=== PATIENT | male | born 1940 | race Caucasian/White ===

== ENCOUNTER → 2017-10-04 | Outpatient (CLI) | payer MEDICAID | END | disposition home or self-care (01) | LOC: GT 05:36 | PROVIDERS: ATTEND Internal Medicine | DX: E78.5 Hyperlipidemia, unspecified (principal) | CPT/HCPCS: 36415; 80061; P9603 ==

== ENCOUNTER 2017-11-12 01:29 | Emergency (ER) | payer MEDICAID ==
--- NOTE | 2017-11-12 02:14 | RAD ---
EXAM: Two view(s) of the right hip. INDICATION: Pain. COMPARISON: None. FINDINGS: No acute fracture or dislocation. No large soft tissue swelling. IMPRESSION: 1. No acute fracture. Electronically signed by: Jorge Luis Cuevas MD 11/12/2017 2:13 AM [facility] Workstation: [id number]
--- NOTE | 2017-11-12 02:17 | ED.PDOC ---
History of Present Illness - General Time Seen by Provider: 11/12/17 01:37 Source: patient Exam Limitations: clinical condition - History of Present Illness Initial Comments: the patient is a 77-year-old male presenting to the emergency room secondary to right hip pain. The patient apparently fell at his long-term care facility. EMS found him on the floor. He is having a little bit of right hip pain when he moves the right hip. There is no obvious deformity or bruising. No laceration. He is also having some mild pain in the right wrist with movement only. The patient has fairly significant dementia and is really unable to tell us any significant medical history or about the fall itself. No evidence of any other injury. The patient is fairly difficult to examine and get information from because he is fairly paranoid. Timing/Duration: unsure Severity: mild Improving Factors: nothing Worsening Factors: movement Associated Symptoms: denies symptoms Review of Systems - Review of Systems Review of Systems: 11/12/17 02:16 validity of review of systems is certainly limited by dementia Constitutional: States: no symptoms reported EENTM: States: no symptoms reported Respiratory: States: no symptoms reported Cardiology: States: no symptoms reported Gastrointestinal/Abdominal: States: no symptoms reported Genitourinary: States: no symptoms reported Musculoskeletal: States: see HPI Skin: States: no symptoms reported Neurological: States: no symptoms reported Endocrine: States: no symptoms reported Hematologic/Lymphatic: States: no symptoms reported All other Systems: No Change from Baseline Physical Exam - Physical Exam General Appearance: Alert, Anxious, No apparent distress Eye Exam: bilateral normal Ears, Nose, Throat: hearing grossly normal, normal ENT inspection, normal pharynx Neck: full range of motion, supple Respiratory: lungs clear, normal breath sounds, no respiratory distress, no accessory muscle use Cardiovascular/Chest: normal peripheral pulses, no edema, other - regular rate Peripheral Pulses: radial,right: 2+, radial,left: 2+, dorsalis pedis,right: 2+, dorsalis pedis,left: 2+ Gastrointestinal/Abdominal: non tender, soft Rectal Exam: deferred Back Exam: no CVA tenderness, no vertebral tenderness Extremity: normal range of motion, no pedal edema, no calf tenderness, normal capillary refill, other - the patient does have some discomfort with both active and passive range of motion about the right hip. No deformity. He appears to be neurovascularly at his baseline. 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 Skin Exam: normal color Progress - Progress Progress: 11/12/17 02:18 the patient's a 77-year-old male presenting to the emergency room after a fall at his living quarters, due to some right hip and right wrist pain. X-ray shows no evidence of any fracture or dislocation. He certainly seems to have strained his right hip. He needs to ambulate carefully. He needs to follow up with his primary care doctor. ER warnings were given for any significant worsening. Additional therapy may be beneficial to prevent further falls if he is directable. assistive devices may prove beneficial to prevent further falls in the near future. - Results/Orders Results/Orders: x-ray of the right hip and right wrist show no evidence of any fracture or dislocation. Departure - Departure Clinical Impression: Strain of right hip Qualifiers: Encounter type: initial encounter Qualified Code(s): S76.011A - Strain of muscle, fascia and tendon of right hip, initial encounter Sprain of wrist, right Qualifiers: Encounter type: initial encounter Qualified Code(s): S63.501A - Unspecified sprain of right wrist, initial encounter Disposition: Discharge to Home or Self Care Condition: Fair Instructions: DI for Hip Bursitis Diet: regular diet Activity: increase activity as tolerated Referrals: REMEDIOS MARES MD [Primary Care Provider] - 1-2 Weeks Additional Instructions: the patient's a 77-year-old male presenting to the emergency room after a fall at his living quarters, due to some right hip and right wrist pain. X-ray shows no evidence of any fracture or dislocation. He certainly seems to have strained his right hip. He needs to ambulate carefully. He needs to follow up with his primary care doctor. ER warnings were given for any significant worsening. Additional therapy may be beneficial to prevent further falls if he is directable. assistive devices may prove beneficial to prevent further falls in the near future.
--- NOTE | 2017-11-12 02:25 | RAD ---
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 No displaced fracture. No dislocation. Moderate degenerative changes of the basal joint. Mild degenerative changes of the radiocarpal joint. No radiopaque foreign body. IMPRESSION: Osteopenia without displaced fracture. Electronically signed by: John Garcia MD 11/12/2017 2:23 AM CLINICAL LAW PROFESSOR
[2017-11-12 02:40] VITALS: O2SAT 94
[2017-11-12 02:50] VITALS: BP 161/90; TEMP 98
== END 2017-11-12 02:45 | disposition home or self-care (01) ==
LOC: ER 01:29
DX: S76.011A Strain of muscle, fascia and tendon of right hip, initial encounter (principal); S63.501A Unspecified sprain of right wrist, initial encounter; I10 Essential (primary) hypertension; F03.90 Unspecified dementia, unspecified severity, without behavioral disturbance, psychotic disturbance, mood disturbance, and anxiety; Z95.0 Presence of cardiac pacemaker; Z87.891 Personal history of nicotine dependence; W19.XXXA Unspecified fall, initial encounter; Y92.009 Unspecified place in unspecified non-institutional (private) residence as the place of occurrence of the external cause

== ENCOUNTER → 2017-12-13 | Outpatient (CLI) | payer MEDICAID | LOC: GT 08:00 | DX: Z51.81 Encounter for therapeutic drug level monitoring (principal) | CPT/HCPCS: 36415; 80164; 85025; P9603 ==

== ENCOUNTER → 2018-03-28 | Outpatient (CLI) | payer MEDICAID | LOC: GT 06:38 | PROVIDERS: ATTEND Internal Medicine | DX: E78.5 Hyperlipidemia, unspecified (principal); Q25.44 Congenital dilation of aorta; I25.10 Atherosclerotic heart disease of native coronary artery without angina pectoris; Z86.73 Personal history of transient ischemic attack (TIA), and cerebral infarction without residual deficits | CPT/HCPCS: 36415; 80061; P9603 ==

== ENCOUNTER → 2020-04-23 | Outpatient (CLI) | payer MEDICARE, MEDICAID ==
--- NOTE | 2020-04-23 17:09 | US ---
EXAM DESCRIPTION: Venous,Lower Extremity RT: ULTRASOUND. CLINICAL HISTORY: ABNORMALITIES OF GAIT AND MOBILITY COMPARISON: None Available. TECHNIQUE: Johns-scale and doppler sonographic evaluation of the deep venous system of the right lower extremity. FINDINGS: Doppler evaluation shows normal color flow and normal phasicity and augmentation of the right common femoral vein, femoral vein, popliteal vein, greater saphenous vein, junction with the CFV. Also normal color flow and normal phasicity and augmentation of the peroneal, and posterior tibial vein. The right lower extremity deep veins were completely compressible; normal occlusion with transducer pressure. Johns-scale survey showed no echogenic thrombus within these veins. IMPRESSION: 1. Duplex ultrasound evaluation of the right lower extremity deep venous system showing no evidence of thrombosis. Electronically signed by: Lenny Rose MD 04/23/2020 5:08 PM CDT
--- NOTE | 2020-04-24 09:27 | US ---
EXAM DESCRIPTION: Soft Tissue,Extremity: ULTRASOUND. CLINICAL HISTORY: 79 years Male OTHER ABNORMALITIES OF GAIT AND MOBILITY. Palpable mass right lateral thigh. COMPARISON: None Available. TECHNIQUE: Transcutaneous scanning: Johns-scale and Doppler modes. FINDINGS: Region of interest right lateral thigh. Edema in the subcutaneous adipose tissue. No margins are seen. No dominant solid mass or distinct cyst. No large calcifications. IMPRESSION: Edema in the subcutaneous adipose tissue in the region of palpable mass right lateral thigh. No dominant solid mass or cyst. Electronically signed by: Lenny Rose MD 04/24/2020 9:25 AM CDT
== END ==
LOC: US 09:30
PROVIDERS: ATTEND Internal Medicine
DX: R26.89 Other abnormalities of gait and mobility (principal); R60.9 Edema, unspecified

== ENCOUNTER 2020-10-02 14:07 | Emergency (ER) | payer MEDICARE, OTHER ==
--- NOTE | 2020-10-02 14:38 | ED.PDOC ---
History of Present Illness - General Chief Complaint: General Stated Complaint: Elevated D-Dimer, covid positive Time Seen by Provider: 10/02/20 14:27 Additional Information: Patient is an 80-year-old male with vascular dementia who presents to the ED from a [facility] for follow-up testing due to normal laboratory values. Patient is unable to give a meaningful history, history is per the nurse via EMS who brought patient to the ED. Patient had routine labs done earlier today due to patient having Covid and his D-dimer was elevated at 3190. Patient was sent to the ED for evaluation for PE. Patient is a poor historian and unable to give a meaningful history, but he does specifically deny chest pain and shortness of breath. - History of Present Illness Allergies/Adverse Reactions: Allergies NSAIDs Allergy (Verified 10/02/20 14:27) Home Medications: Ambulatory Orders Acetaminophen [Tylenol 8 Hour Arthritis] 650 mg PO 10/02/20 Aspirin [Aspirin 81 Low Dose] 81 mg PO DAILY 10/02/20 Atorvastatin Calcium [Lipitor] 20 mg PO DAILY 10/02/20 Carvedilol [Coreg] 3.125 mg PO DAILY 10/02/20 Divalproex Sodium [Depakote ER] 250 mg PO DAILY 10/02/20 Docusate Sodium [Colace Cap] 100 mg PO BID 10/02/20 Doxazosin Mesylate [Doxazosin] 2 mg PO DAILY 10/02/20 Furosemide 20 mg PO DAILY 10/02/20 Lactulose (Encephalopathy) [Lactulose] 20 gm PO DAILY 10/02/20 Memantine HCl [Namenda] 5 mg PO BID 10/02/20 Potassium Chloride [K-Tab] 10 meq PO DAILY 10/02/20 Rivaroxaban [Xarelto Starter Pack 15 & 20 mg] 1 tab PO BID #42 tab 10/02/20 Sennosides [Senna] 8.6 mg PO BID 10/02/20 Spironolactone [Aldactone] 50 mg PO DAILY 10/02/20 Review of Systems - Review of Systems Unable to Obtain Due To: dementia Past Medical History (General) - Patient Medical History Hx Stroke: Yes Hx Dementia: Yes Hx Asthma: No Hx of COPD: No Hx Cardiac Disorders: No Hx Congestive Heart Failure: No Hx Hypertension: Yes Hx Gastroesophageal Reflux: Yes - Vaccination History Hx Tetanus, Diphtheria Vaccination: Yes Hx Influenza Vaccination: Yes Hx Pneumococcal Vaccination: Yes - Social History Hx Tobacco Use: Yes Hx Alcohol Use: Yes - Activities of Daily Living Group Home/Assisted Living (if applicable):: [facility] - Female History Patient is a Female of Child Bearing Age (10 -59 yrs old): No Family Medical History - Family History Mother Family History: Unknown Physical Exam - Physical Exam General Appearance: Alert, Comfortable, No apparent distress, Well Developed, Well Nourished Ears, Nose, Throat: normal ENT inspection Neck: full range of motion, supple, normal inspection Respiratory: chest non-tender, lungs clear, normal breath sounds, no respiratory distress, no accessory muscle use Cardiovascular/Chest: normal peripheral pulses, regular rate, rhythm, no edema, no gallop, no JVD, no murmur Extremity: normal inspection, no pedal edema 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 He follows simple commands. Skin Exam: normal color, warm/dry Progress - Progress Progress: 10/02/20 14:40 I have reviewed patient's labs from earlier today. Pertinent findings are as follows: Chemistry panel essentially normal, CRP normal, CBC unremarkable except for mild thrombocytopenia, D-dimer 3190, troponin 0 0.02. I would not repeat any labs in the ED but will instead obtained chest x-ray and CTA chest. 10/02/20 17:[address] has resulted and shows a pulmonary embolus. Patient reexamined and he is in no distress at all, breathing easily in bed. Patient is a [facility] resident and I have reviewed his transfer paperwork and he is a DNR. Xarelto has been given in the ED and I will discharge back to the [facility] with prescription for Xarelto. Of note, patient CT showed an incidental, large coronary artery plaque, and I will place in my discharge recommendations to the [facility] for the patient follow-up with cardiology. Patient is stable and I believe he is safe for discharge with continued Xarelto and follow-up with cardiology. I have attempted to explain patient's ED findings today with patient, but he is confused, nods his head, and gives a non--related answer to questioning as to whether he understands his diagnosis. Departure - Departure Clinical Impression: COVID-19 Pulmonary embolism Qualifiers: Pulmonary embolism type: single subsegmental (without acute cor pulmonale) Qualified Code(s): I26.93 - Single subsegmental pulmonary embolism without acute cor pulmonale Time of Disposition: 17:40 Disposition: Discharge to SNF Condition: Fair Departure Forms: ED Discharge - Pt. Copy, Patient Portal Self Enrollment Referrals: CÉSAR SUAZO [Primary Care Provider] - 1-5 Days Prescriptions: Rivaroxaban [Xarelto Starter Pack 15 & 20 mg] 1 tab PO BID #42 tab Home Medications: Ambulatory Orders Acetaminophen [Tylenol 8 Hour Arthritis] 650 mg PO 10/02/20 Aspirin [Aspirin 81 Low Dose] 81 mg PO DAILY 10/02/20 Atorvastatin Calcium [Lipitor] 20 mg PO DAILY 10/02/20 Carvedilol [Coreg] 3.125 mg PO DAILY 10/02/20 Divalproex Sodium [Depakote ER] 250 mg PO DAILY 10/02/20 Docusate Sodium [Colace Cap] 100 mg PO BID 10/02/20 Doxazosin Mesylate [Doxazosin] 2 mg PO DAILY 10/02/20 Furosemide 20 mg PO DAILY 10/02/20 Lactulose (Encephalopathy) [Lactulose] 20 gm PO DAILY 10/02/20 Memantine HCl [Namenda] 5 mg PO BID 10/02/20 Potassium Chloride [K-Tab] 10 meq PO DAILY 10/02/20 Rivaroxaban [Xarelto Starter Pack 15 & 20 mg] 1 tab PO BID #42 tab 10/02/20 Sennosides [Senna] 8.6 mg PO BID 10/02/20 Spironolactone [Aldactone] 50 mg PO DAILY 10/02/20 Comments: Your CT scan today shows an incidental finding of a large plaque in your right coronary artery. This plaque is at risk of breaking off and causing obstruction which may cause a heart attack in the future. While there is no immediate need for you to see a senior dot net developer, you should follow-up with a senior dot net developer in a timely manner to discuss treatment versus observation of this plaque.
--- NOTE | 2020-10-02 15:53 | RAD ---
EXAM DESCRIPTION: Chest,1 View CLINICAL HISTORY: SOB COMPARISON: None available TECHNIQUE: AP portable chest FINDINGS: Mild elevation the right hemidiaphragm is observed. A pacemaker with atrial and ventricular leads is seen in place. The lungs are clear. No pleural fluid is seen. The heart is within range of normal. IMPRESSION: A pacemaker is observed in place. The chest is otherwise unremarkable. Electronically signed by: Forrest Reece MD 10/02/2020 3:52 PM [facility]
[2020-10-02] MEDS ORDERED: RIVAROXABAN 15 MG TAB PO ONE (16:01)
--- NOTE | 2020-10-02 16:02 | CT ---
EXAM DESCRIPTION: CTA Chest CLINICAL HISTORY: 80 years Male, SOB, elevated DD COMPARISON: Chest x-ray dated the same date TECHNIQUE: Transaxial images were obtained with intravenous contrast media. Multiplanar reconstruction was performed. No 3-D reconstruction was performed.This exam was performed according to our departmental dose-optimization program, which includes automated exposure control, adjustment of the mA and/or kV according to patient size and/or use of iterative reconstruction technique. FINDINGS: The thyroid is normal in appearance. No pathologic axillary adenopathy is observed. No hilar or mediastinal adenopathy is seen. No pleural fluid is seen on the patient's right. There is a small left pleural effusion. Left basilar atelectasis is observed. No adrenal masses are detected. Small simple cysts are observed in the upper pole the patient's right kidney. Ectasia of the thoracic aorta is observed. Calcific atherosclerotic changes are observed. Significant plaque formation is observed in the origin of the left subclavian artery. Exam reveals a pulmonary embolus in the right lower lobe pulmonary artery. No left-sided emboli are observed. A bovine arch is noted. Degenerative changes are seen in the thoracic spine. IMPRESSION: 1. A right lower lobe pulmonary embolus is observed. 2. Left basilar atelectasis and a left pleural effusion are noted. 3. Exam reveals significant plaque in the origin of the left subclavian artery. 4. Results were called to Dr. 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
[2020-10-02 18:29] VITALS: BP 179/102; TEMP 98; O2SAT 96
== END 2020-10-02 18:40 ==
LOC: ER 14:07
DX: U07.1 COVID-19 (principal); I26.93 Single subsegmental thrombotic pulmonary embolism without acute cor pulmonale; R79.89 Other specified abnormal findings of blood chemistry; I25.83 Coronary atherosclerosis due to lipid rich plaque; F03.90 Unspecified dementia, unspecified severity, without behavioral disturbance, psychotic disturbance, mood disturbance, and anxiety; I10 Essential (primary) hypertension; K21.9 Gastro-esophageal reflux disease without esophagitis; Z66 Do not resuscitate; Z86.73 Personal history of transient ischemic attack (TIA), and cerebral infarction without residual deficits; Z87.891 Personal history of nicotine dependence; Z79.899 Other long term (current) drug therapy; Z79.01 Long term (current) use of anticoagulants; Z79.82 Long term (current) use of aspirin; Z88.6 Allergy status to analgesic agent

== ENCOUNTER → 2020-10-06 | Outpatient (CLI) | payer MEDICARE, OTHER | LOC: GT 08:17 | PROVIDERS: ATTEND Family Medicine | DX: R09.02 Hypoxemia (principal); R71.8 Other abnormality of red blood cells ==